=== PATIENT | female | born 1980 | race Hispanic/Latino ===

== ENCOUNTER 2025-05-02 16:33 | Emergency (ER) | payer SELFPAY ==
[2025-05-02 17:11] VITALS: BP 153/83; PULSE 82; RESP 18; TEMP 37.1; O2SAT 99; BMI 38.3
--- NOTE | 2025-05-02 17:15 | EKG_ITS ---
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
[2025-05-02 18:39] LABS: Add Manual Diff / Slide Review NO; Hematocrit 38.8 % (36-46); Hemoglobin 12.8 g/dL (12.0-16.0); Lymphocytes Absolute Auto 2000 /uL (1100-4500); Mean Corpuscular HGB Conc 33.0 % (30-36); Mean Corpuscular Hemoglobin 26.7 PG (26-34); Mean Corpuscular Volume 80.9 fL (80-100); Platelet Count 412 X10^3/uL (150-400)
[2025-05-02 18:54] LABS: Alanine Aminotransferase 26 IU/L (<35); Albumin 4.4 g/dL (3.5-5.0); Albumin Globulin Ratio 1.5 (1.0-2.8); Alkaline Phosphatase 92 U/L (38-126); Blood Urea Nitrogen 9 mg/dL (7-17); Calcium 8.8 mg/dL (8.4-10.2); Carbon Dioxide 28 mmol/L (22-32); Chloride 103 mmol/L (98-107); Estimated Glomerular Filt Rate > 60 mL/min (>60); Globulin 3.0 g/dL (1.7-4.1); Glucose 103 mg/dL (70-99); HEMOLYSIS < 15 (0-50); Lipase 97 U/L (23-300); Potassium 4.3 mmol/L (3.4-5.1); Sodium 138 mmol/L (137-145); Total Protein 7.4 g/dL (6.3-8.2)
[2025-05-02 20:18] VITALS: BP 158/80; PULSE 74; RESP 20; O2SAT 98
--- NOTE | 2025-05-02 20:55 | ED_ITS ---
HPI - Abdominal Pain General Chief Complaint: Abdominal Pain Stated Complaint: abd pain/hernia/hard under skin Time Seen by Provider: 05/02/25 20:55 Source: patient Mode of arrival: Ambulatory Limitations: no limitations History of Present Illness HPI narrative: 44-year-old female with a history of hypertension on nifedipine with a history umbilical hernia. Patient states that has been present for about 2 years we will sometimes pop in and out has become painful today and felt hard. Was not easily reducing and so patient presented to the ER. She is notes she has has a little bit of nausea particularly when it is painful when she pushes on it. She has a little bit of diarrhea today. She has not had any vomiting. She denies any fevers she has felt a little bit chilled. She states pain has improved the hernia feels like it has gone back inside she is not able to palpate it anymore. Her pain had resolved. Patient states no dysuria urgency or frequency. She states she has a history of hypertension on nifedipine but no other daily medications. She denies prior surgeries. She denies any drug allergies. He uses tobacco, denies any alcohol, no recreational drugs. Patient is from [place] but we will be living in the area for several months while she is caregiving for a family member. Related Data Allergies Allergy/AdvReac Type Severity Reaction Status Date / Time No Known Drug Allergies Allergy Verified 05/02/25 17:11 Review of Systems Review of Systems ROS Unobtainable: All systems reviewed & are unremarkable except as noted in HPI and below Patient History Social History Smoking Status: Current every day smoker Smoking Status: Current every day smoker tobacco type: cigarettes Exam Narrative Exam Narrative: GENERAL: Alert and oriented x three, female in mild distress HEENT: Head normocephalic, atraumatic, EOMI, pupils reactive, face symmetric, moist mucous membranes NECK: Supple, full range of motion CARDIOVASCULAR: Regular rate and rhythm without murmurs, rubs or gallops. RESPIRATORY: Breath sounds equal bilaterally, no wheezes rales or rhonchi. ABDOMEN: Soft, nontender. Nondistended. No palpable hernia does appear to be a small palpable defect at the 1 o'clock position above the umbilicus. Normoactive bowel sounds all 4 quadrants. No guarding or rebound, rigidity, no mass : No CVA tenderness EXTREMITIES: Normal range of motion, no clubbing or edema. Neurovascularly intact NEUROLOGICAL: Cranial nerves II through XII grossly intact. Moving all extremities SKIN: Warm, dry, no petechiae, no rashes or lesions. Initial Vital Signs Initial Vital Signs: Vital Signs Temperature 98.8 F 05/02/25 17:11 Pulse Rate 82 05/02/25 17:11 Respiratory Rate 18 05/02/25 17:11 Blood Pressure 153/83 H 05/02/25 17:11 Pulse Oximetry 99 05/02/25 17:11 Oxygen Delivery Method Room Air 05/02/25 17:11 Course Orders Ordered: ED Orders 05/02/25 17:15 EKG-12 Lead Stat 05/02/25 18:30 Complete Blood Count AUTO DIFF Stat Comprehensive Metabolic Panel Stat Lipase Stat 05/02/25 20:35 Ictotest Urine Stat Urine Microscopic Stat Discontinued Medications Ondansetron HCl (Ondansetron 4 Mg/2 Ml Inj) 4 mg IV NOW PRN PRN Reason: Nausea And Vomiting Ondansetron HCl (Ondansetron 4 Mg Odt) 4 mg PO NOW PRN PRN Reason: Nausea And Vomiting Vital Signs Vital signs: Vital Signs - 8 hr 05/02/25 17:11 05/02/25 20:18 05/02/25 21:25 Temperature 98.8 F Pulse Rate 82 74 72 Respiratory Rate 18 20 16 Blood Pressure 153/83 H 158/80 H 179/91 H Pulse Oximetry 99 98 97 Oxygen Delivery Method Room Air Room Air Room Air MDM - Abdominal Pain Lab Data 05/02/25 18:30 05/02/25 18:30 Labs: Lab Results 05/02/25 05/02/25 Range/Units 18:30 20:35 WBC 7.8 (4.5-11.0) X10^3/uL RBC 4.79 (4.0-5.2) X10^6/uL Hgb 12.8 (12.0-16.0) g/dL Hct 38.8 (36-46) % MCV 80.9 (80-100) fL MCH 26.7 (26-34) PG MCHC 33.0 (30-36) % RDW 15.3 H (11.6-14.8) % Plt Count 412 H (150-400) X10^3/uL Neut % (Auto) 62.7 (50-75) % Lymph % (Auto) 25.1 (25-40) % [place] % (Auto) 5.0 (3-14) % Eos % (Auto) 6.4 H (2-4) % Baso % (Auto) 0.8 (0-2) % Neut # (Auto) 4900 (1365-5922) /uL Lymph # (Auto) 2000 (1425-2811) /uL [place] # (Auto) 400 (0-900) /uL Eos # (Auto) 500 H (0-450) /uL Baso # (Auto) 100 (0-100) /uL Sodium 138 (137-145) mmol/L Potassium 4.3 (3.4-5.1) mmol/L Chloride 103 (98-107) mmol/L Carbon Dioxide 28 (22-32) mmol/L BUN 9 (7-17) mg/dL Creatinine 0.70 (0.52-1.04) mg/dL Estimated GFR > 60 (>60) mL/min BUN/Creatinine Ratio 12.9 (6-22) Glucose 103 H (70-99) mg/dL Calcium 8.8 (8.4-10.2) mg/dL Total Bilirubin 0.2 (0.2-1.3) mg/dL AST 33 (14-36) IU/L ALT 26 (<35) IU/L Alkaline Phosphatase 92 (38-126) U/L Total Protein 7.4 (6.3-8.2) g/dL Albumin 4.4 (3.5-5.0) g/dL Globulin 3.0 (1.7-4.1) g/dL Albumin/Globulin Ratio 1.5 (1.0-2.8) Lipase 97 (23-300) U/L Ur Bilirubin Confirm Negative (Negative) Urine RBC None seen (0-5/HPF) Urine WBC None seen (0-5/HPF) Ur Squamous Epith Cells None seen (0-5/HPF) Urine Bacteria None seen (None) Ur Culture Indicated? Cult not indicated Vol Urine Centrifuged 10ml (spun) Point of care testing: Point of Care Testing Test Results Negative Urine Dip Bedside Urine Glucose Negative Bedside Urine Bilirubin + 1 Bedside Urine Ketone - Negative Urine Specific [place] 1.030 Bedside Urine Occult Blood - Negative Bedside Urine pH 6.0 Bedside Urine Protein +/- 15 Bedside Urine Urobilinogen - Negative Bedside Urine Nitrite - Negative Bedside Urine Leukocytes - Negative Esterase MDM Narrative Medical decision making narrative: Labs show white count of 7.8 hemoglobin of 12 platelets of 412. Chemistries are normal BUN and creatinine normal glucose is 103 LFTs are normal. Lipase is normal. Point of care urine shows bilirubin, negative nitrates negative leuks. Positive protein. Point of care test is negative. Sinus rhythm rate of 73 IN 126 QRS is 78 QTC of 440. No acute ST-elevation. No prior for comparison. 44-year-old female with complaint of hernia that reduced prior to my evaluation. Patient has nontender on exam she is feeling improved at this time. Discussed obtaining abdominal ultrasound but is her hernia appears to be reduced she defers. We will give her contact for general surgery to follow up for repair. Discussed return precautions. Discharge Plan Departure Patient Disposition: Home Clinical Impression: Hernia, umbilical Instructions: Abdominal Hernia Activity Restrictions/Additional Instructions: Follow up with General surgery, contacts included below. Call tomorrow to set up a follow up appointment. From your description and evaluation I suspect you have an umbilical hernia or ventral abdominal hernia that is causing your symptoms. You can take ibuprofen up to 600 mg every 6 hours as needed for pain and/or acetaminophen to a 1000 mg as needed. If you noticed that your hernia does not want to reduce easily can lay flat for about 20 minutes after taking pain medication and see if you can give some gentle pressure to help reduce. If you develop recurrent abdominal pain, persistent vomiting, if you are not have any bowel movements or passing gas, if you are hernia we will not reduce her go back inside, if it is hard or tender or having any of these other symptoms return to the emergency department. Referrals: Cisco Friedman MD [Physician, General Surgery] Stand Alone Forms: Patient Portal/API
[2025-05-02 20:58] LABS: Ictotest Urine Negative (Negative)
[2025-05-02 21:01] LABS: Culture Indicated Urine Cult Not Indicated
[2025-05-02 21:25] VITALS: BP 179/91; PULSE 72; RESP 16; O2SAT 97
== END 2025-05-02 21:26 | disposition home or self-care (01) ==
PROVIDERS: Emergency Provider Emergency Medicine
DX: K42.9 Umbilical hernia without obstruction or gangrene (principal); R10.9 Unspecified abdominal pain
CPT/HCPCS: 36415; 80053; 81003; 81015; 81025; 83690; 85025; 93005; 99283; 99284

== ENCOUNTER 2025-05-03 17:37 | Observation (INO) | payer SELFPAY ==
[2025-05-03] VITALS (12 sets, daily range): BP systolic 119–208; BP diastolic 69–114; PULSE 82–104; RESP 16–25; TEMP 36.4–36.6; O2SAT 94–99; BMI 38.3; BMI 38.5
--- NOTE | 2025-05-03 17:55 | EKG_ITS ---
[address] [address] Test Date: 2025-05-03 Pat Name: Charley Acosta Department: Room: Gender: Female Operations Inspector: : 1980 Requested By: Order Number: [id number] Reading MD: Julio Flood MD Measurements Intervals [place] Rate: 95 P: 62 TN: 136 QRS: 70 QRSD: 86 T: 45 QT: 368 QTc: 462 Interpretive Statements Normal sinus rhythm Possible Left atrial enlargement Electronically Signed On 05-04-2025 7:40:15 PST by Julio Flood MD
--- NOTE | 2025-05-03 17:55 | ED.ABDPAIN ---
HPI - Abdominal Pain General Chief Complaint: Abdominal Pain Stated Complaint: Hernia oain, ABD pain,vomit Time Seen by Provider: 05/03/25 17:55 History of Present Illness HPI narrative: 44-year-old female known history of umbilical hernia seen yesterday reduced prior to being discharged presents today with bilious vomiting along with periumbilical pain associated with umbilical hernia throwing up bile at this time in significant pain. Last bowel movement was yesterday and was normal. She has not passed gas. Other than what is stated 14 point review of systems negative. Related Data Home Medications ?Medication ?Instructions ?Recorded ?Confirmed nifedipine 60 mg tablet,extended 60 mg PO DAILY 05/03/25 05/03/25 release Allergies Allergy/AdvReac Type Severity Reaction Status Date / Time No Known Drug Allergies Allergy Verified 05/03/25 17:53 Review of Systems Review of Systems ROS Unobtainable: All systems reviewed & are unremarkable except as noted in HPI and below Patient History Social History household members: family and friend(s) alcohol intake: current tobacco type: cigarettes Exam Narrative Exam Narrative: GENERAL: [44] year old patient appears stated age. Well-developed patient, in mild distress. HEAD: Atraumatic. Normocephalic. EYES: Pupils equal round and reactive. Extraocular motions intact. No scleral icterus. No injection or drainage. ENT: Nose without bleeding, purulent drainage. Throat without erythema, tonsillar hypertrophy or exudate. Airway patent. NECK: Trachea midline. Non tender CARDIOVASCULAR: Regular rate and rhythm without murmurs, gallops, or rubs. RESPIRATORY: Clear to auscultation. Breath sounds equal bilaterally. No wheezes, rales, or rhonchi. GASTROINTESTINAL: Umbilical hernia distended unable to be reduced. EXTREMITIES: No edema or joint tenderness. BACK: Nontender without deformity or crepitance. No flank tenderness. NEURO: AOx3. SKIN: No rash or erythema of visible areas Initial Vital Signs Initial Vital Signs: Vital Signs Temperature 97.6 F 05/03/25 17:53 Pulse Rate 97 H 05/03/25 17:53 Respiratory Rate 18 05/03/25 17:53 Blood Pressure 208/114 H 05/03/25 17:53 Pulse Oximetry 99 05/03/25 17:53 Oxygen Delivery Method Room Air 05/03/25 17:53 Course Orders Ordered: ED Orders 05/03/25 17:51 Magnesium Stat 05/03/25 17:54 EKG-12 Lead Stat 05/03/25 17:56 CT abdomen pelvis w con Stat 05/03/25 17:57 Complete Blood Count AUTO DIFF Stat Comprehensive Metabolic Panel Stat Lactate (Lactic Acid) Stat Lipase Stat POTASSIUM CHLORIDE IN WATER (Potassium Cl 10 Meq/100 Ml Carissa) 10 meq in 100 mls @ 100 mls/hr IV Q1H TARAN Stop: 05/03/25 22:59 Last Admin: 05/03/25 19:30 Dose: 100 mls/hr Documented By: SENG Ondansetron HCl (Ondansetron 4 Mg/2 Ml Inj) 4 mg IV NOW PRN PRN Reason: Nausea And Vomiting Last Admin: 05/03/25 18:01 Dose: 4 mg Documented By: PEDRO Ondansetron HCl (Ondansetron 4 Mg Odt) 4 mg PO NOW PRN PRN Reason: Nausea And Vomiting Discontinued Medications Hydromorphone HCl (Hydromorphone 1 Mg/Ml Syringe) 1 mg IV NOW ONE Stop: 05/03/25 17:59 Last Admin: 05/03/25 18:01 Dose: 1 mg Documented By: PEDRO Hydromorphone HCl (Hydromorphone 1 Mg/Ml Syringe) 1 mg IV NOW ONE Stop: 05/03/25 18:28 Last Admin: 05/03/25 18:31 Dose: 1 mg Documented By: PEDRO Lactated Ringer's (Lactated Ringers) 1,000 mls @ 1,000 mls/hr IV BOLUS ONE Stop: 05/03/25 19:08 Last Infusion: 05/03/25 19:22 Dose: Infused Documented By: Admin: 05/03/25 18:36 Dose: 1,000 mls/hr Documented By: PEDRO Metoclopramide HCl (Metoclopramide 10 Mg/2 Ml Inj) 10 mg IV NOW ONE Stop: 05/03/25 18:28 Last Admin: 05/03/25 18:36 Dose: 10 mg Documented By: PEDRO Midazolam HCl (Midazolam 2 Mg/2 Ml Vial) 2 mg IV NOW ONE Stop: 05/03/25 18:03 Last Admin: 05/03/25 18:05 Dose: 2 mg Documented By: PEDRO Vital Signs Vital signs: Vital Signs - 8 hr 05/03/25 17:53 Temperature 97.6 F Pulse Rate 97 H Respiratory Rate 18 Blood Pressure 208/114 H Pulse Oximetry 99 Oxygen Delivery Method Room Air MDM - Abdominal Pain Lab Data 05/03/25 17:57 05/03/25 17:57 Labs: Lab Results 05/03/25 05/03/25 Range/Units 17:51 17:57 WBC 11.9 H D (4.5-11.0) X10^3/uL RBC 4.98 (4.0-5.2) X10^6/uL Hgb 13.4 (12.0-16.0) g/dL Hct 39.9 (36-46) % MCV 80.0 (80-100) fL MCH 26.8 (26-34) PG MCHC 33.5 (30-36) % RDW 15.7 H (11.6-14.8) % Plt Count 483 H (150-400) X10^3/uL Neut % (Auto) 53.7 (50-75) % Lymph % (Auto) 34.6 (25-40) % [place] % (Auto) 6.7 (3-14) % Eos % (Auto) 4.2 H (2-4) % Baso % (Auto) 0.8 (0-2) % Neut # (Auto) 6400 (4097-8995) /uL Lymph # (Auto) 4100 (8130-2338) /uL [place] # (Auto) 800 (0-900) /uL Eos # (Auto) 500 H (0-450) /uL Baso # (Auto) 100 (0-100) /uL Sodium 139 (137-145) mmol/L Potassium 3.0 L D (3.4-5.1) mmol/L Chloride 101 (98-107) mmol/L Carbon Dioxide 25 (22-32) mmol/L BUN 7 (7-17) mg/dL Creatinine 0.66 (0.52-1.04) mg/dL Estimated GFR > 60 (>60) mL/min BUN/Creatinine Ratio 10.6 (6-22) Glucose 121 H (70-99) mg/dL Lactate 2.0 (0.7-2.1) mmol/L Calcium 8.9 (8.4-10.2) mg/dL Magnesium 1.9 (1.6-2.3) mg/dL Total Bilirubin 0.3 (0.2-1.3) mg/dL AST 41 H (14-36) IU/L ALT 34 (<35) IU/L Alkaline Phosphatase 111 (38-126) U/L Total Protein 8.4 H (6.3-8.2) g/dL Albumin 4.8 (3.5-5.0) g/dL Globulin 3.6 (1.7-4.1) g/dL Albumin/Globulin Ratio 1.3 (1.0-2.8) Lipase 87 (23-300) U/L Imaging Data CT scan - abdomen/pelvis: Radiologist's Impression: [address] [address] [address] Scan Report Signed Patient: Charley Acosta MR#: [id number] : 1980 Acct:[id number] Age/Sex: 44 / F Date of Service: 05/03/25 Loc: ED Accession Number: [id number] Procedure: CT abdomen pelvis w con Ordering Provider: Julio Hollis D.O. PROCEDURE: CT ABDOMEN PELVIS W CON INDICATIONS: abd pain known hernia TECHNIQUE: After the administration of intravenous contrast, axial sections acquired from the lung bases to the pubic symphysis. Coronal and sagittal reformats were performed. For radiation dose reduction, the following was used: automated exposure control, adjustment of mA and/or kV according to patient size. COMPARISON: None. FINDINGS: Image quality: Diagnostic. Lower Chest: No significant findings. ABDOMEN: Liver: No solid mass. Gallbladder: Luminal stone without wall thickening. Biliary ducts: No biliary dilation. Pancreas: No ductal dilation. Spleen: Size is within normal limits. Adrenal Glands: No adrenal nodules. Kidneys and Ureters: No hydronephrosis. No solid mass. No complex renal cystic lesion which requires follow up. Stomach and Bowel: Normal colonic caliber, without significant wall thickening. Peritoneum: No abnormal intraperitoneal fluid. No free air. Ventral Wall: Bowel and fat containing ventral hernia with rectus diastasis measuring 3.7 cm. No proximal obstruction. No gross evidence of incarceration or strangulation Abdominal Nodes: No retroperitoneal or mesenteric adenopathy by size criteria. Vessels: Aorta and inferior vena cava are normal in size. PELVIS: Pelvic Organs: Unremarkable. Bladder: No bladder wall thickening, accounting for underdistention. Pelvic Nodes: No enlarged lymph nodes. Miscellaneous: No inguinal hernias are seen. Bones: No aggressive osseous abnormality. IMPRESSION: Prominent bowel and fat containing ventral hernia. No proximal obstruction. ECG Data Interpretation: NSR HR 95 OR 136 QRS [address]-t wave change Unchanged fro 05/02/25 MDM Narrative Medical decision making narrative: All lab work, vital signs, nurse triage note, medication list, previous ER visits, and all imaging studies reviewed. CT head and pelvis showed prominent bowel and fat containing ventral hernia. No proximal obstruction. WBC 11.9 hemoglobin 13.4 platelet 483. Sodium 139 potassium 3.0 chloride 101 CO2 25 BUN 7 creatinine 0.66 glucose 121 lactic acid 2.0 using 1.9 lipase 87. has seen and evaluated patient will be taking patient to OR directly. Unable to reduce here at the bedside. Discharge Plan Departure Clinical Impression: Incarcerated umbilical hernia Admit Date/Time: 05/03/25 20:31 Admit Provider: Cisco Friedman
[2025-05-03] MEDS: ONDANSETRON 4 MG/2 ML INJ IV (18:01)
[2025-05-03 18:02] LABS: Add Manual Diff / Slide Review NO; Hematocrit 39.9 % (36-46); Hemoglobin 13.4 g/dL (12.0-16.0); Lymphocytes Absolute Auto 4100 /uL (1100-4500); Mean Corpuscular HGB Conc 33.5 % (30-36); Mean Corpuscular Hemoglobin 26.8 PG (26-34); Mean Corpuscular Volume 80.0 fL (80-100); Platelet Count 483 X10^3/uL (150-400)
[2025-05-03] MEDS: MIDAZOLAM 2 MG/2 ML VIAL IV (18:05)
[2025-05-03 18:11] LABS: Alanine Aminotransferase 34 IU/L (<35); Albumin 4.8 g/dL (3.5-5.0); Albumin Globulin Ratio 1.3 (1.0-2.8); Alkaline Phosphatase 111 U/L (38-126); Blood Urea Nitrogen 7 mg/dL (7-17); Calcium 8.9 mg/dL (8.4-10.2); Carbon Dioxide 25 mmol/L (22-32); Chloride 101 mmol/L (98-107); Estimated Glomerular Filt Rate > 60 mL/min (>60); Globulin 3.6 g/dL (1.7-4.1); Glucose 121 mg/dL (70-99); HEMOLYSIS < 15 (0-50); Lipase 87 U/L (23-300); Potassium 3.0 mmol/L (3.4-5.1); Sodium 139 mmol/L (137-145); Total Protein 8.4 g/dL (6.3-8.2)
[2025-05-03 18:12] LABS: Lactate (Lactic Acid) 2.0 mmol/L (0.7-2.1)
[2025-05-03] MEDS: LACTATED RINGERS 1,000 ML 1000 ML IV (18:36)
[2025-05-03] MEDS: METOCLOPRAMIDE 10 MG/2 ML INJ IV (18:36)
[2025-05-03 19:05] LABS: Magnesium 1.9 mg/dL (1.6-2.3)
[2025-05-03] MEDS: POTASSIUM CHLORIDE IN WATER 10 MEQ/100 ML PIGGYBACK 100 MEQ IV ×3 (19:30→23:51)
[2025-05-03] MEDS: SODIUM CHLORIDE 0.9% 500 ML 100 ML IV (19:41)
--- NOTE | 2025-05-03 19:51 | P.HP_ITS ---
History of Present Illness History of Present Illness Date Patient Seen: 05/03/25 Time Patient Seen: 19:51 Chief complaint: Hernia oain, ABD pain,vomit Narrative: 44yo F, incarcerated umbilical hernia with vomiting. Recent ED visit where hernia was reduced. Hernia is now incarcerated and unable to be reduced. She has vomiting suggesting bowel obstruction. Meds Home Medications and Allergies Allergies Allergy/AdvReac Type Severity Reaction Status Date / Time No Known Drug Allergies Allergy Verified 05/03/25 17:53 Exam Vital Signs (past 8 hours): - 05/03/25 17:53 Temperature 97.6 F Pulse Rate 97 H Respiratory Rate 18 Blood Pressure 208/114 H Pulse Oximetry 99 Oxygen Delivery Method Room Air Oxygen Delivery Method Room Air Narrative Exam Narrative: Const General: acute distress Orientation: alert and oriented x3 HENMT Ears: hearing grossly normal bilaterally Eyes Visual Griffith: normal visual griffith by confrontation Conjunctivae: conjunctivae normal Sclera: sclerae normal EOM: EOM intact bilaterally Resp Effort & Inspection: normal respiratory effort and able to speak in complete sentences Cardio Rate: regular rate GI Palpation: distended, umbilical hernia is tight and painful consistent with incarcerated small bowel. It is not reducible. Extrem General: no pedal edema and no calf tenderness Objective Labs 05/03/25 17:57 05/03/25 17:57 Labs: Laboratory Results - last 24 hr 05/03/25 05/03/25 17:51 17:57 WBC 11.9 H D RBC 4.98 Hgb 13.4 Hct 39.9 MCV 80.0 MCH 26.8 MCHC 33.5 RDW 15.7 H Plt Count 483 H Neut % (Auto) 53.7 Lymph % (Auto) 34.6 [place] % (Auto) 6.7 Eos % (Auto) 4.2 H Baso % (Auto) 0.8 Neut # (Auto) 6400 Lymph # (Auto) 4100 [place] # (Auto) 800 Eos # (Auto) 500 H Baso # (Auto) 100 Sodium 139 Potassium 3.0 L D Chloride 101 Carbon Dioxide 25 BUN 7 Creatinine 0.66 Estimated GFR > 60 BUN/Creatinine Ratio 10.6 Glucose 121 H Lactate 2.0 Calcium 8.9 Magnesium 1.9 Total Bilirubin 0.3 AST 41 H ALT 34 Alkaline Phosphatase 111 Total Protein 8.4 H Albumin 4.8 Globulin 3.6 Albumin/Globulin Ratio 1.3 Lipase 87 Assessment & Plan Assessment and plan (1) Incarcerated umbilical hernia: Status: Acute Plan Plan urgent open repair with possible small bowel resection. The risks, benefits and options regarding the procedure were explained to the patient in detail. Risk discussion included but not limited to: infection, bleeding, bowel resection, recurrence. The patient was encouraged to ask questions and they were answered to their satisfaction. The patient understands and is agreeable to proceed. Time-Based Coding :: [TOTAL MINUTES] spent with patient and on the chart (including review of chart, obtaining history, exam, reviewing outside data, placing orders, documenting exam and treatment plan, and counseling patient) on [DATE]. PROFEE Master Control Technician Document charge(s): Yes Charge Codes Initial inpatient/observation care: 48783
--- NOTE | 2025-05-03 21:32 | P.OP_ITS ---
Operative Date/Time/Diagnoses Date of procedure: 05/03/25 Time of procedure: 21:33 Pre-op diagnosis: Incarcerated umbilical hernia Post-op diagnosis: same Procedure & Clinicians Procedure: Open umbilical hernia repair Same procedure(s) as scheduled: Yes Indications: 44yo F presented to ED with incarcerated umbilical hernia containing bowel, +n/v. CT showed small bowel in hernia sac. Surgeon: Cisco Friedman Assisted?: No Anesthesia Type: General Operative Notes Findings: Hernia sac contained viable bowel, small fascial defect, <2cm Closure Type: primary Specimen(s): none sent Applied: none Estimated Blood Loss (mL): 15 Blood products transfused: none Procedure in detail: After informed consent and satisfactory general endotracheal anesthesia, the abdomen was prepped and draped in the usual sterile manner. The patient r eceived appropriate preoperative antibiotics and DVT prophylaxis. Surgical time-out was performed with all team members in agreement. The planned infraumbilical transverse incision was injected with 0.25% Marcaine with epinephrine. The skin incision was made with a 10 blade and this was continued through the skin and subcutaneous tissues. Hemostasis was achieved with cautery. The subcutaneous plane was dissected around the hernia sac and from the umbilicus. While manipulating the hernia sac I could feel it reduce with muscle relaxation from anesthesia. I mobilized the subcutaneous plane around the sac down to the fascial level. I opened the distal sac to ensure there were no intraperitoneal contents and there were none. I excised the sac at the fascial level. I could inspect the small bowel through this opening and it was viable. The resulting fascial defect was less than 2 cm. This was repaired primarily with 0 Ethibond interrupted suture with no palpable fascial defects. I injected the additional Marcaine into the musculature surrounding the incision as a field block. The umbilical skin was reumbilicated to the fascia using 3-0 Vicryl suture interrupted x2. The subcutaneous plane was reapproximated using 3-0 Vicryl interrupted suture. The skin incision was closed using 4-0 Monocryl in a subcuticular manner. Dermabond glue was applied as a final dressing. The estimated blood loss was minimal. The instrument sponge and needle counts were all correct x2. The patient tolerated the procedure well and was extubated in the operating room and transported to the recovery area in stable condition. Complications: none Post-operative Condition: stable Disposition: PACU Plan for aftercare: PACU then floor
[2025-05-03] MEDS: KETOROLAC 30 MG/ML VIAL 15 MG IV (21:51)
--- NOTE | 2025-05-03 23:08 | PC.NURSE ---
Admitted from PACU at 22:25.
--- NOTE | 2025-05-03 23:33 | SUR.OPER ---
Supine on padded OR bed, head on pillow, arms secured on padded arm boards at <90 degrees abduction, legs uncrossed, safety belt at thigh, tape over blanket over lower legs.
[2025-05-04 00:25] VITALS: BP 136/92; PULSE 88; RESP 18; TEMP 36.5; O2SAT 93
[2025-05-04 01:25] VITALS: BP 130/90; PULSE 84; RESP 17; TEMP 36.6; O2SAT 94
[2025-05-04] MEDS: POTASSIUM CHLORIDE IN WATER 10 MEQ/100 ML PIGGYBACK 100 MEQ IV (02:12)
[2025-05-04 06:32] LABS: Blood Urea Nitrogen 6 mg/dL (7-17); Calcium 9.1 mg/dL (8.4-10.2); Carbon Dioxide 24 mmol/L (22-32); Chloride 104 mmol/L (98-107); Estimated Glomerular Filt Rate > 60 mL/min (>60); Glucose 155 mg/dL (70-99); HEMOLYSIS < 15 (0-50); Potassium 4.5 mmol/L (3.4-5.1); Sodium 138 mmol/L (137-145)
[2025-05-04 07:00] VITALS: O2SAT 97
--- NOTE | 2025-05-04 07:07 | PM.DS.IH.1 ---
History of Present Illness History of Present Illness Date Patient Seen: 05/04/25 Time Patient Seen: 07:07 Chief complaint: Hernia oain, ABD pain,vomit Narrative: 44yo F, incarcerated umbilical hernia with vomiting. Recent ED visit where hernia was reduced. Hernia is now incarcerated and unable to be reduced. She has vomiting suggesting bowel obstruction. Discharge Providers Provider Date of admission: 05/03/25 20:31 Discharge Date: 05/04/25 Discharge provider: Cisco Friedman MD Summary Hospital Course Discharge Diagnosis: Incarcerated umbilical hernia Hospital Course: Presented through ED with incarcerated umbilical hernia, taken to OR urgently, small bowel viable in hernia sac, small fascial defect (2cm), primary repair with suture (no mesh). POD#1 tolerating regular diet, without n/v, pain controlled, discharged home. Status at Discharge Cognitive/behavioral status at discharge: oriented Functional status at discharge: independent ambulation Overall status at discharge: patient is progressing back to baseline Time Spent with Patient Time spent: Greater than 30 minutes Exam Vital Signs (past 8 hours): - 05/03/25 23:25 05/04/25 00:25 05/04/25 01:25 Temperature 97.8 F 97.7 F 97.8 F Pulse Rate 82 88 84 Respiratory Rate 17 18 17 Blood Pressure 151/93 H 136/92 H 130/90 Pulse Oximetry 94 93 94 Oxygen Delivery Method Room Air Oxygen Flow Rate 2 Narrative Exam Narrative: Const General: healthy appearing, comfortable and no acute distress Orientation: alert and oriented x3 Resp Effort & Inspection: normal respiratory effort and able to speak in complete sentences Cardio Rate: regular rate GI Palpation: soft, incision CDI, tenderness appropriate for postop Extrem General: no pedal edema and no calf tenderness Objective Labs 05/03/25 17:57 05/04/25 05:20 Labs: Laboratory Results - last 24 hr 05/03/25 05/03/25 05/04/25 17:51 17:57 05:20 WBC 11.9 H D RBC 4.98 Hgb 13.4 Hct 39.9 MCV 80.0 MCH 26.8 MCHC 33.5 RDW 15.7 H Plt Count 483 H Neut % (Auto) 53.7 Lymph % (Auto) 34.6 Pratt % (Auto) 6.7 Eos % (Auto) 4.2 H Baso % (Auto) 0.8 Neut # (Auto) 6400 Lymph # (Auto) 4100 Pratt # (Auto) 800 Eos # (Auto) 500 H Baso # (Auto) 100 Sodium 139 138 Potassium 3.0 L D 4.5 D Chloride 101 104 Carbon Dioxide 25 24 BUN 7 6 L Creatinine 0.66 0.53 Estimated GFR > 60 > 60 BUN/Creatinine Ratio 10.6 11.3 Glucose 121 H 155 H Lactate 2.0 Calcium 8.9 9.1 Magnesium 1.9 Total Bilirubin 0.3 AST 41 H ALT 34 Alkaline Phosphatase 111 Total Protein 8.4 H Albumin 4.8 Globulin 3.6 Albumin/Globulin Ratio 1.3 Lipase 87 PFSH Social History household members: family and friend(s) Smoking Status: Current every day smoker alcohol intake: current Discharge Assessment & Plan Assessment and Plan Assessment: S/P repair incarcerated umbilical hernia Plan of Treatment: Home today Discharge Plan Discharge Plan Patient Disposition: Home Provider Discharge Comment: No lifting >10lbs for 6 weeks Take pain medication as needed Shower OK, no swimming for 2 weeks Diet as tolerated Discharge orders & Medications Prescriptions: New hydrocodone-acetaminophen 5-325 mg tablet 1 tab PO Q4H PRN (Reason: pain) Qty: 30 0RF Continued nifedipine 60 mg tablet extended release 60 mg PO DAILY Follow up/Referrals: Cisco Friedman MD [Physician, General Surgery] Diet/Activity/Treatments Diet: Diet as Tolerated Skin/Wound/Dressing Care Report to your healthcare provider any signs of infection, such as:: chills, fever, night sweats and increased pain Visit Report/Discharge Packet Stand Alone Forms: Patient Portal/API, Stroke Signs & Symptoms Quality VTE Deep Vein Thrombosis/Pulmonary Embolism Present on Admission: No IH PROFEE Charge Codes Discharge inpatient/observation: [id number]
[2025-05-04 08:35] VITALS: BP 157/84; PULSE 80; RESP 14; TEMP 36.7; O2SAT 97
[2025-05-04] MEDS: HEPARIN 5,000 UNIT/ML VIAL 5000 UNIT SUBCUT (09:21)
--- NOTE | 2025-05-04 09:30 | CM.DANOTE ---
Initial DCP Assessment Note. Review EMR and PT Interview. Met with patient at bedside to discuss discharge needs.PT is alert x 4 sitting up in chair. No acute distress. Independent. Lives with family. Payor:??Self Pay PCP: Out of State Summary & Plan:?44 y/o female arrived to ED via POV c/o abd pain. Admitted INPT. Dx. Umbilical Hernia Obstruction. Plan: Emergent surgery, pain control, IVF, IV Abx. Discharge home with family when improved. Discharge Planning/Care Management CM Discharge Assessment Start: 05/03/25 21:18 Freq: Status: Active Protocol: Document 05/04/25 09:27 (Rec: 05/04/25 09:29 [id number]) Discharge Planning Assessment Assigned Discharge Ceci Stratton RN CM Computational Theory Scientist Provider Out of State. Insurance Other (enter in Comment) Insurance Comment Self Pay Advance Directives? No History Provided By Patient,Medical Record Has Patient been No admitted in last 30 days? Prior Living House Arrangements Household Members family,friend(s) Type of Drives own vehicle transporation used prior to admit Barriers to No Discharge Referrals Initiated None needed Review Status In Process Please Provide Date 05/04/25 Initial DC Assessment Was Performed Next Review Type Continued Stay Review
[2025-05-04] MEDS: IBUPROFEN 600 MG TABLET PO (10:46)
[2025-05-04] MEDS: ACETAMINOPHEN 325 MG TABLET 650 MG PO (10:46)
--- NOTE | 2025-05-04 11:45 | PC.NURSE ---
Removde pt PIVs, pt tolerated well. No belongings in safe, drawer, or pharmacy. All belongings with pt. All VSWNL. Provided discharge education on medications, activity, follow up, symptoms worsening, and weight limits. Pt stated all questions answered. Bonnie from pharm also provided med education. Pt escorted via WC by GIOVANNI Beebe with family to [facility].
== END 2025-05-04 11:46 | disposition home or self-care (01) ==
LOC: ED 19:39 → AC 21:17
PROVIDERS: Admitting Provider Surgery; Emergency Provider Family Medicine; Referring Provider Family Medicine; Visit Provider Surgery
PROC: (CPT 49000; principal; 2025-05-03 23:30)
DX: K42.0 Umbilical hernia with obstruction, without gangrene (principal); F17.200 Nicotine dependence, unspecified, uncomplicated
CPT/HCPCS: 49592; 36415; 74177; 80048; 80053; 83605; 83690; 83735; 85025; 93005; 93010; 96365; 96366; 96368; 96372; 96375; 96376; 99284; G0378; J0689; J1100; J1171; J1644; J1885; J2250; J2405; J2704; J2765; J3010; J3490; J7030; J7120